=== PATIENT | female | born 1955 | race Caucasian/White ===

== ENCOUNTER → 2017-03-30 | Outpatient (CLI) | payer OTHER ==
[~2017-03-30] MED LIST: OPTIRAY 320 IV PRN; PATIENT'S ALLERGY INFO NEEDS ENTERED SCH
--- NOTE | 2017-03-30 12:49 | DIAGNOSTIC IMAGING REPORT ---
ANGIO ABD/PELVIS COMBO CLINICAL HISTORY: 61 years-old Female presenting with atherosclerosis of the [place] arteries of the bilateral legs with intermittent claudication, aortoiliac stenosis. TECHNIQUE: Multidetector CT of the abdomen and pelvis was performed before and after the administration of intravenous contrast. 3-D volumetric and/or maximum intensity projection (MIP) images were subsequently reconstructed for review. IV contrast: 93 mL of Optiray 320. A dose lowering technique was used consistent with the principles of ALARA (as low as reasonably achievable). COMPARISON: None. CT DOSE (mGy.cm): The estimated cumulative dose is 510.69 mGy.cm. FINDINGS: Hoist Mechanic topogram: Unremarkable. Vasculature: Precontrast imaging demonstrates no evidence of postsurgical material. Extensive atherosclerosis with calcified atherosclerotic plaque in the normal caliber abdominal aorta. The greatest degree of narrowing within the aortic lumen is located in the infrarenal portion. Noncalcified atherosclerotic plaque at this site results in an minimum lumen of 5.7 mm in comparison to the normal distal luminal diameter of 11.9 mm (approximately 50% stenosis). Celiac and superior mesenteric arteries patent at their origins and along their courses. Single main renal arteries with patent origins. Extensive renal vascular calcification. Inferior mesenteric artery likely stenotic at the origin though the vessel is patent. Extensive calcified and noncalcified atherosclerotic plaque diffusely narrows the bilateral common and external iliac arteries. Right common femoral artery has a minimum diameter of 2.4 mm, and the left common femoral artery has a minimum diameter of 2.8 mm. Superficial and deep femoral arteries significantly narrowed, greater on the left. Over 90% stenosis in the left superficial femoral artery. Remaining abdomen and pelvis: Lung bases: Lungs and pleural spaces clear. Normal heart size. No pericardial or pleural effusion. Liver: Macronodular contour of the liver could suggest underlying fibrosis or cirrhosis. Allowing for the arterial phase of contrast, no focal lesion. Conventional hepatic arterial anatomy. Biliary: Moderate biliary ductal prominence likely a reservoir effect in the post cholecystectomy state. Gallbladder surgically absent. Pancreas: The pancreatic tail is absent on either a surgical or congenital basis. Spleen: Normal. Adrenal glands: Mild nodular thickening of the left adrenal gland, nonspecific. Right adrenal gland normal. Kidneys and ureters: Normal. No hydronephrosis. Extensive renal vascular calcification. No nephrolithiasis. Normal ureters. Bladder: Incompletely evaluated secondary to underdistention. Pelvic organs: Uterus surgically absent. Normal ovaries. Bowel: Normal appendix. No bowel obstruction. Peritoneal cavity: No free fluid or intraperitoneal gas. Lymph nodes: No enlarged lymph nodes in the abdomen or pelvis. Abdominal wall: Normal. Musculoskeletal: Degenerative changes of the spine. Old right rib fractures noted. Anterior vertebral body height loss of L1. Mild osteopenia. IMPRESSION: 1. Extensive atherosclerotic plaque results in significant stenosis of the aortoiliac arteries and extending into the proximal lower extremities. Approximately 50% stenosis in the infrarenal abdominal aorta due to noncalcified atherosclerotic plaque. Over 90% stenosis in the left superficial femoral artery. 2. Macronodular contour of the liver could suggest underlying fibrosis or cirrhosis. 3. Anterior vertebral body height loss of L1 in setting of osteopenia. This likely represents an age-indeterminate compression deformity. Correlate clinically for point tenderness. Electronically signed by: Nas Garcia M.D. 03/30/2017 12:48 PM Dictated Date/Time: 03/30/2017 12:36 PM
== END | disposition home or self-care (01) ==
LOC: C.CTS 11:24
PROVIDERS: ATTEND Physician Assistant
DX: I70.213 Atherosclerosis of native arteries of extremities with intermittent claudication, bilateral legs (principal); R93.2 Abnormal findings on diagnostic imaging of liver and biliary tract; M85.88 Other specified disorders of bone density and structure, other site

== ENCOUNTER 2017-05-04 06:05 | Inpatient (IN) | payer OTHER ==
--- NOTE | 2017-04-12 09:09 | PAT Medication Instructions ---
Service Date Apr 12, 2017. Current Home Medication List Aspirin (Aspirin Ec), 81 MG PO QAM Isosorbide Mononitrate Ext Rel (Imdur Ext Rel), 1 TAB PO QAM Lisinopril (Zestril), 5 MG PO QAM Metoprolol Succ (Toprol Xl) (Toprol-Xl), 25 MG PO QAM Multivitamin (Multivitamin), 1 TAB PO QAM Nitroglycerin (Nitrostat), 0.4 MG UT PRN Oxycodone/Acetaminophen 7.5MG/325MG (Percocet 7.5MG/325MG), 1 TAB PO Q6H PRN for N Medication Instructions For Your Scheduled Surgery -Continue as directed: Nitroglycerin (Nitrostat), 0.4 MG UT PRN - Hold the following medications the morning of surgery: Lisinopril (Zestril), 5 MG PO QAM Multivitamin (Multivitamin), 1 TAB PO QAM - Take the following medications the morning of surgery with a sip of water: Aspirin (Aspirin Ec), 81 MG PO QAM Isosorbide Mononitrate Ext Rel (Imdur Ext Rel), 1 TAB PO QAM Metoprolol Succ (Toprol Xl) (Toprol-Xl), 25 MG PO QAM Oxycodone/Acetaminophen 7.5MG/325MG (Percocet 7.5MG/325MG), 1 TAB PO Q6H PRN ( if needed) - Take the following medications as scheduled the night before surgery: Oxycodone/Acetaminophen 7.5MG/325MG (Percocet 7.5MG/325MG), 1 TAB PO Q6H PRN ( if needed) If you have any questions please call us at [phone] or [phone] or [phone]
--- NOTE | 2017-04-12 10:32 | DIAGNOSTIC IMAGING REPORT ---
TWO VIEW CHEST CLINICAL HISTORY: Preoperative examination. FINDINGS: PA and lateral chest radiographs are obtained. No prior studies are available for comparison at the time of dictation. The cardiomediastinal silhouette is unremarkable. There is atherosclerotic calcification of the thoracic aorta. A coronary artery stent is suggested. Emphysema is identified. There is nonspecific interstitial thickening. No airspace consolidation or pleural effusion is identified. There is asymmetrical scarring at the right apex as compared to left. There is no pneumothorax. The skeletal structures are osteopenic. There are numerous healed bilateral rib fractures. Compression deformities are seen in the lower thoracic and upper lumbar spine. IMPRESSION: 1. Emphysema with no acute cardiopulmonary abnormality. 2. There is asymmetric parenchymal scarring at the right apex. Follow-up with a chest CT is recommended to exclude a right apical mass. Electronically signed by: Jose Quiroz M.D. 04/12/2017 10:30 AM Dictated Date/Time: 04/12/2017 10:29 AM
[2017-04-12 10:36] LABS: BASO % 0.3 %; BASO ABS # 0.02 K/uL (0-0.2); EOS % 1.6 %; HEMATOCRIT 39.7 % (37-47); HEMOGLOBIN 13.4 g/dL (12.0-16.0); IG# 0.03 K/uL (0.00-0.02); LYMPH % 24.4 %; LYMPH ABS # 1.54 K/uL (1.2-3.4); MEAN CORPUSCULAR HEMOGLOBIN 32.1 pg (25-34); MEAN CORPUSCULAR HGB CONC 33.8 g/dl (32-36); MEAN PLATELET VOLUME 9.8 fL (7.4-10.4); MONO % 6.8 %; MONO ABS # 0.43 K/uL (0.11-0.59); NEUT % 66.4 %; NEUT ABS # 4.19 K/uL (1.4-6.5); PLATELET COUNT 312 K/uL (130-400); RED CELL DISTRIBUTION WIDTH CV 14.5 % (11.5-14.5); RED CELL DISTRIBUTION WIDTH SD 49.5 fL (36.4-46.3); WHITE BLOOD COUNT 6.31 K/uL (4.8-10.8)
[2017-04-12 10:45] LABS: CALCIUM 9.2 mg/dl (8.5-10.1); CREATININE 0.56 mg/dl (0.60-1.20); POTASSIUM 5.1 mmol/L (3.5-5.1); PTT PATIENT 27.8 SECONDS (21.0-31.0)
[~2017-05-04] VITALS: Ht 152.4 cm; Wt 48.9 kg
[~2017-05-04 06:05] MED LIST changes: +ASPI81TA28 PO; +ISOS30TA35 PO; +LACTATED RINGER'S 1000ML 1,000 ML IV SCH; +LISI-729 PO; +METO25TA3 PO; +MULT-506 PO; +NTRGSL/4 UT; -OPTIRAY 320 IV PRN; +OXYC7.5T65 PO; -PATIENT'S ALLERGY INFO NEEDS ENTERED SCH
[2017-05-04 06:44] VITALS: BP 150/94; PULSE 104; TEMP 36.6; O2SAT 96
[2017-05-04] MEDS ORDERED: BUPIVACAINE/EPINEPHRINE 0.5% MPF 1:200,000 30 ML VIAL ONE (07:07)
[2017-05-04] MEDS ORDERED: LIDOCAINE HCL 1% 20 ML VIAL ONE (07:07)
[2017-05-04] MEDS ORDERED: IODIXANOL (VISIPAQUE) 270 MG/ML 50ML ONE (07:07)
[2017-05-04] MEDS ORDERED: GELATIN SPONGE SZ 100 ONE (07:07)
[2017-05-04] MEDS ORDERED: CEFAZOLIN SOD 1 GM VIAL ONE (07:08)
[2017-05-04] MEDS ORDERED: PAPAVERINE HCL INJ 30 MG/ML 2 ML VIAL ONE (07:08)
[2017-05-04] MEDS ORDERED: THROMBIN 5000 UNITS KIT ONE (07:08)
[2017-05-04] MEDS ORDERED: HEPARIN SOD (PORCINE) 1000 UNIT/ML 10 ML VIAL ONE ×2 (07:08→08:50)
--- NOTE | 2017-05-04 07:13 | Progress Note ---
Progress Note Date of Service May 04, 2017. Progress Note Patient for bilateral femoral artery endarterectomies and possible bilateral iliac artery stents. I have discussed the risks options and benefits of the procedure with the patient. The patient understands the risks options and benefits and agrees to the procedure. I have examined the patient, reviewed the History & Physical and in the interval since the performance of the History & Physical I have noted the following changes of clinical significance: No changes noted
[2017-05-04] MEDS ORDERED: LIDOCAINE HCL 2% 2 ML VIAL (20MG/ML) ONE (07:14)
[2017-05-04] MEDS ORDERED: MIDAZOLAM HCL 1 MG/ML 2ML VIAL ONE ×2 (07:14→10:05)
[2017-05-04] MEDS ORDERED: NEOSTIGMINE METHYLSULFATE 5 MG/5 ML SYR ONE (07:14)
[2017-05-04] MEDS ORDERED: PROPOFOL IV EMULSION 10 MG/ML 20 ML VIAL IV ONE (07:14)
[2017-05-04] MEDS ORDERED: CISATRACURIUM BESYLATE IV SOLN 2 MG/ML 10 ML VIAL ONE ×2 (07:14→11:35)
[2017-05-04] MEDS ORDERED: DEXAMETHASONE SOD INJ 4 MG/ML VIAL ONE (07:14)
[2017-05-04] MEDS ORDERED: GLYCOPYRROLATE INJ 0.2 MG/ML VIAL ONE (07:14)
[2017-05-04] MEDS ORDERED: ONDANSETRON INJ 2 MG/ML 2 ML VIAL ONE (07:14)
[2017-05-04] MEDS ORDERED: FENTANYL CITRATE INJ 50 MCG/1 ML 2 ML VIAL ONE ×3 (07:15→12:04)
[2017-05-04] MEDS ORDERED: THROMBIN FOR SOLN 20000 UNIT KIT ONE (07:19)
--- NOTE | 2017-05-04 07:32 | History and Physical ---
History & Physical Date May 04, 2017. Chief Complaint Bilateral leg claudication History of Present Illness The patient is a 61 year old female with significant claudication of both lower extremities along with an ulcer of her left foot with a necrotic eschar. This is getting worse. CTA showed bilateral iliac artery and aortic stenosis along with significant common femoral artery stenosis. Vitals Vital Signs Past 12 Hours Date Time Temp Pulse Resp B/P (MAP) Pulse Ox O2 Delivery O2 Flow Rate FiO2 05/04/17 06:44 36.6 104 20 150/94 (112) 96 Room Air Allergies Coded Allergies: Atorvastatin (Verified Adverse Reaction, Unknown, GI UPSET, STOMACH ACHES , 05/04/17) Rosuvastatin (Verified Adverse Reaction, Unknown, STOMACH ACHES GI UPSET, 05/04/17) Home Medications Scheduled Aspirin (Aspirin Ec), 81 MG PO QAM Isosorbide Mononitrate Ext Rel (Imdur Ext Rel), 1 TAB PO QAM Lisinopril (Zestril), 5 MG PO QAM Metoprolol Succ (Toprol Xl) (Toprol-Xl), 25 MG PO QAM Multivitamin (Multivitamin), 1 TAB PO QAM Nitroglycerin (Nitrostat), 0.4 MG UT PRN Scheduled PRN Oxycodone/Acetaminophen 7.5MG/325MG (Percocet 7.5MG/325MG), 1 TAB PO Q6H PRN for N Surgical / Medical History Hx Cardiac Surgery: Yes (CARDIAC CATH 2 STENT- STENT 2011) Hx Abdominal Surgery: Yes (GB SURG) Hx Cancer Surgery: Yes (HYSTERECTOMY) Hx Thoracic Surgery: No Hx Orthopedic: No Hx Urinary Tract Surgery: No HX Other Surgery: Yes (SEE TEXT) Past Medical/Surgical History: Heart Disease, Hypertension Social History Smoking Status: Current Every Day Smoker Hx Tobacco Use In Past Year?: Yes (SMOKES 1 1/2 PPD X 35 YRS) Hx Alcohol Use - Type & Amnt: Yes (6 A WEEK) Hx Substance Use -Type & Amnt: No Review of Systems Constitutional: No chills, No diaphoresis, No fever, No malaise, No weakness, No weight gain, No weight loss, No sweats, No fatigue, No problem reported Respiratory: No cough, No cyanosis, No MENDEZ, No hemoptysis, No orthopnea, No PND , No short of breath, No sputum production, No stridor, No wheezing, No dyspnea , No problem reported Cardiovascular: No chest pain, No chest tightness, No chest pressure, No palpitations, No syncope, No diaphoresis, No edema, No intermittent claudication , No orthopnea, No cyanosis, No mumur, No lightheadedness, No paroxysmal nocturnal dyspnea, No problem reported Gastrointestinal: No abdominal pain, No constipation, No diarrhea, No nausea, No vomiting, No anorexia, No appetite changes, No belching, No flatulence, No food intolerance, No hematemesis, No hemorrhoids, No hematochezia, No stool changes, No heartburn, No indigestion, No dysphagia, No rectal bleeding, No problem reported Musculoskeletal: No back pain, No gout, No joint pain, No joint swelling, No muscle pain, No muscle stiffness, No muscle weakness, No neck pain, No problem reported Neurologic: No dizziness, No weakness, No headache, No lethargy, No numbness, No paresthesia, No pre-existing deficit, No seizures, No tics, No tingling, No tremors, No vertigo, No memory loss, No LOC, No problem reported Psychiatric: No anxiety, No alcohol abuse, No auditory hallucinations, No depression, No drug abuse, No homicidal ideation, No mood changes, No suicidal ideation, No visual hallucinations, No problem reported Physical Exam Constitutional: General Apperance: heathly-appearing, well-nourished, well-developed Level of Distress: NAD Ambulation: ambulating normally Psychiatric: Mental Status: active & alert, normal mood, normal affect Orientation: oriented except where noted, to time, to place, to person Memory: recent memory normal, remote memory normal Neck: supple Lungs: Auscultation: breath sounds normal Cardiovascular: Heart Auscultation: RRR Peripheral Pulses: Radial Pulse: normal on the left, normal on the right Posterior Tibialis Pulse: absent on the left, absent on the right Dorsalis Pedis Pulse: decreased on the right, absent on the left Abdomen: Inspection & Palpation: soft Musculoskeletal: normal Extremities: Upper Right: no cyanosis, no edema, no varicosities, no palpable cord, no clubbing, no ulcers, no mottling Upper Left: no cyanosis, no edema, no varicosities, no palpable cord, no clubbing, no ulcers, no mottling Lower Right: no cyanosis, no edema, no varicosities, no palpable cord, no clubbing, no ulcers, no mottling Lower Left: no edema, ulcers Neurologic: Cranial Nerves: grossly intact Sensation: grossly intact Assessment and Plan Imp: Bilateral iliac and aortic stenosis Bilateral femoral artery stenosis Plan: Patient for arteriography with possible intervention and bilateral common femoral artery endarterectomies. I have discussed the risks options and benefits of the procedure with the patient. The patient understands the risks options and benefits and agrees to the procedure.
[2017-05-04] MEDS: CEFAZOLIN 1000MG IV PUSH 7.5 ML IV SCH ×2 (08:01→08:10)
[2017-05-04] MEDS ORDERED: ESMOLOL HCL 10 MG/ML 10 ML VIAL ONE (08:50)
[2017-05-04] MEDS ORDERED: METOPROLOL TARTRATE 1 MG/ML VIAL ONE (12:05)
[2017-05-04] MEDS ORDERED: IODIXANOL (VISIPAQUE) 270 MG/ML 150ML XX ONE (12:06)
--- NOTE | 2017-05-04 12:19 | [facility] Post Operative Brief Note ---
Immediate Operative Summary Operative Date May 04, 2017. Pre-Operative Diagnosis Bilateral iliac and aortic stenosis Bilateral femoral artery stenosis Post-Operative Diagnosis Bilateral iliac and aortic stenosis Bilateral femoral artery stenosis Bilateral profunda femoral artery stenosis Procedure(s) Performed Bilateral Common Femoral Artery Endarterectomy with Patch Bilateral Common Iliac Artery Stents Bilateral Profunda Artery Endartetectomy with Patch Surgeon Dr. Angel Mejia [employer] Lead Surgeon(s) Marlene Goodman PA-c and Dr. Precious Melchor(Fellow) Estimated Blood Loss 250 ml Findings Consistent with Post-Op Diagnosis Specimens None Per Surgeon Drains None Anesthesia Type General Complication(s) none Disposition Accompanied Pt To Recover: no Disposition: Recovery Room / PACU
[2017-05-04] MEDS ORDERED: CEFAZOLIN IV 1,000 MG in DEXTROSE 5% 50ML 50 ML IV SCH (12:30)
[2017-05-04] MEDS ORDERED: NITROGLYCERIN 0.4 MG SL PER TAB CHARGE UT PRN (12:30)
[2017-05-04] MEDS ORDERED: ONDANSETRON INJ 2 MG/ML 2 ML VIAL IV PRN ×2 (12:30→13:00)
[2017-05-04] MEDS ORDERED: NITROGLYCERIN 5 MG/ML 10 ML VIAL ONE (12:59)
[2017-05-04] MEDS ORDERED: NALOXONE HCL 0.4 MG/1 ML VIAL/CARP IV PRN (13:00)
[2017-05-04] MEDS ORDERED: PROMETHAZINE HCL INJ 12.5 MG in SODIUM CHLORIDE 0.9% 50ML 50 ML IV PRN (13:00)
[2017-05-04] MEDS ORDERED: LABETALOL HCL IV 5 MG/ML 20ML IV PRN (13:00)
[2017-05-04] MEDS ORDERED: EpHEDrine SULFATE INJ 50 MG/ML AMP IV PRN (13:00)
[2017-05-04] MEDS ORDERED: FLUMAZENIL 0.1 MG/1 ML 10 ML VIAL IV PRN (13:00)
[2017-05-04] MEDS ORDERED: ATROPINE SULFATE 0.1 MG/ML 5ML SYR IV PRN (13:00)
[2017-05-04 13:13] LABS: BASO % 0.1 %; BASO ABS # 0.01 K/uL (0-0.2); EOS % 0.4 %; EOS ABS # 0.03 K/uL (0-0.5); HEMATOCRIT 31.2 % (37-47); HEMOGLOBIN 9.9 g/dL (12.0-16.0); IG# 0.07 K/uL (0.00-0.02); LYMPH % 10.9 %; LYMPH ABS # 0.87 K/uL (1.2-3.4); MEAN CELL VOLUME 95.4 fL (80-100); MEAN CORPUSCULAR HEMOGLOBIN 30.3 pg (25-34); MEAN CORPUSCULAR HGB CONC 31.7 g/dl (32-36); MEAN PLATELET VOLUME 8.6 fL (7.4-10.4); MONO % 1.4 %; MONO ABS # 0.11 K/uL (0.11-0.59); NEUT % 86.3 %; NEUT ABS # 6.87 K/uL (1.4-6.5); PLATELET COUNT 280 K/uL (130-400); RED CELL DISTRIBUTION WIDTH SD 51.8 fL (36.4-46.3); WHITE BLOOD COUNT 7.96 K/uL (4.8-10.8)
--- NOTE | 2017-05-04 13:41 | Anesthesiology Progress Note ---
Anesthesia Post Op Note Date & Time May 04, 2017 at 13:41 Vital Signs Pain Intensity: 0 Vital Signs Past 12 Hours Date Time Temp Pulse Resp B/P (MAP) Pulse Ox O2 Delivery O2 Flow Rate FiO2 05/04/17 13:25 36.6 93 18 100/67 99 Nasal Cannula 2 05/04/17 13:15 89 18 100/63 96 Nasal Cannula 2 05/04/17 13:05 86 18 99/66 100 Oxymask 10 05/04/17 12:55 85 20 98/68 100 Oxymask 10 05/04/17 12:46 36.7 82 20 98/62 100 Oxymask 10 05/04/17 06:44 36.6 104 20 150/94 (112) 96 Room Air Notes Mental Status: alert / awake / arousable, participated in evaluation Pt Amnestic to Procedure: Yes Nausea / Vomiting: adequately controlled Pain: adequately controlled Airway Patency, RR, SpO2: stable & adequate BP & HR: stable & adequate Hydration State: stable & adequate Anesthetic Complications: no major complications apparent
[2017-05-04] MEDS ORDERED: MoRPHine SULFATE 2 MG/ML CARP IV PRN (14:00)
[2017-05-04] MEDS: HYDROmorphone INJ 1 MG/ML SYR IV PRN ×2 (14:00→14:05)
[2017-05-04 14:45] VITALS: BP 99/64; PULSE 97; TEMP 37; O2SAT 95; Ht 152.4 cm; Wt 48.9 kg
[2017-05-04 15:38] VITALS: BP 104/67; PULSE 96; TEMP 37.1; O2SAT 94
[2017-05-04] MEDS: CEFAZOLIN IV 1,000 MG in SYRINGE 0 ML IV SCH (15:38)
[2017-05-04] MEDS ORDERED: D5W AND 1/2NSS 1,000 ML IV SCH (16:00)
[2017-05-04 16:11] VITALS: BP 128/79; PULSE 86; TEMP 36.6; O2SAT 98
[2017-05-04 19:55] VITALS: BP 124/76; PULSE 94; TEMP 37.8; O2SAT 98
[2017-05-05] VITALS (11 sets, daily range): BP systolic 92–135; BP diastolic 58–76; PULSE 91–118; TEMP 36.6–37.5; O2SAT 90–98
[2017-05-05] MEDS: CEFAZOLIN IV 1,000 MG in SYRINGE 0 ML IV SCH (00:10)
[2017-05-05] MEDS: OXYCODONE/ACETAMINOPHEN 5-325 TAB PO PRN ×4 (00:13→23:44)
[2017-05-05] MEDS: MoRPHine SULFATE 4 MG/ML 1 ML CARP\\VIAL IV PRN ×2 (02:16→21:16)
[2017-05-05] MEDS: ISOSORBIDE MONONITRATE 30 MG TABCR PO SCH (07:26)
[2017-05-05] MEDS: PANTOprazole SOD 40 MG TAB PO SCH (07:26)
[2017-05-05] MEDS: MULTIVITAMIN TAB PO SCH (07:27)
[2017-05-05] MEDS: METOPROLOL SUCC 25MG EXT REL TAB PO SCH (07:27)
[2017-05-05] MEDS: ASPIRIN 81 MG ECTAB PO SCH (07:27)
[2017-05-05] MEDS: LISINOPRIL 5 MG TAB PO SCH (07:27)
[2017-05-05] MEDS: ENOXAPARIN 30 MG/0.3 ML SYR SQ SCH (07:28)
[2017-05-05 07:52] LABS: BASO % 0.1 %; BASO ABS # 0.01 K/uL (0-0.2); EOS % 0.8 %; EOS ABS # 0.07 K/uL (0-0.5); HEMATOCRIT 29.6 % (37-47); HEMOGLOBIN 9.7 g/dL (12.0-16.0); IG# 0.05 K/uL (0.00-0.02); LYMPH % 20.7 %; LYMPH ABS # 1.92 K/uL (1.2-3.4); MEAN CELL VOLUME 96.1 fL (80-100); MEAN CORPUSCULAR HEMOGLOBIN 31.5 pg (25-34); MEAN CORPUSCULAR HGB CONC 32.8 g/dl (32-36); MONO ABS # 1.11 K/uL (0.11-0.59); NEUT % 65.9 %; NEUT ABS # 6.11 K/uL (1.4-6.5); PLATELET COUNT 281 K/uL (130-400); RED CELL DISTRIBUTION WIDTH CV 15.4 % (11.5-14.5); RED CELL DISTRIBUTION WIDTH SD 53.6 fL (36.4-46.3); WHITE BLOOD COUNT 9.27 K/uL (4.8-10.8)
[2017-05-05 08:19] LABS: CALCIUM 8.3 mg/dl (8.5-10.1); CREATININE 0.52 mg/dl (0.60-1.20)
[2017-05-05] MEDS ORDERED: PANTOprazole INJ 40 MG in SYRINGE 0 ML IV SCH (11:00)
--- NOTE | 2017-05-05 13:09 | Progress Note ---
Progress Note Date of Service: May 05, 2017. Subjective 61 yo f with multiple medical problems, POD #1 after BL comm iliac art stenting , BL comm fem endarterectomies, BL profunda art endarterectomies, seen in f/u today. Pt admits pain in L foot at wounds only. Admits pain in BL groin incisions, worse with movement. Denies any other complaints. Objective Vital Signs Vital Signs Past 12 Hours Date Time Temp Pulse Resp B/P (MAP) Pulse Ox O2 Delivery O2 Flow Rate FiO2 05/05/17 11:45 36.6 101 18 92/63 (73) 95 Room Air 05/05/17 08:00 90 Room Air 05/05/17 07:36 36.7 109 18 119/70 (86) 90 Room Air 05/05/17 04:02 Room Air 05/05/17 03:33 37.1 118 18 122/76 (91) 91 Exam CONST: A&O x3, NAD, chronically ill appearing female CHEST: RRR lungs decreased, with scattered wheezes and coarse sounds ABD: soft nontnder, + bs x 4 quad EXT: BL groin incisions intact with machelle, + tender, mild edema. No shadowing on dressings. BL feet warm and pink. L lateral foot with eschar noted, unchanged. All toes with brisk cap refill, few old punctate lesions L 3, 4,5 toes. + DP, PT, and peroneal signals with doppler. Laboratory and Microbiology Results Past 24 Hours Test 05/04/17 13:04 05/05/17 07:25 Range/Units White Blood Count 7.96 9.27 4.8-10.8 K/uL Red Blood Count 3.27 3.08 4.2-5.4 M/uL Hemoglobin 9.9 9.7 12.0-16.0 g/dL Hematocrit 31.2 29.6 37-47 % Mean Corpuscular Volume 95.4 96.1 80-100 fL Mean Corpuscular Hemoglobin 30.3 31.5 25-34 pg Mean Corpuscular Hemoglobin Concent 31.7 32.8 32-36 g/dl Platelet Count 280 281 130-400 K/uL Mean Platelet Volume 8.6 9.0 7.4-10.4 fL Neutrophils (%) (Auto) 86.3 65.9 % Lymphocytes (%) (Auto) 10.9 20.7 % Monocytes (%) (Auto) 1.4 12.0 % Eosinophils (%) (Auto) 0.4 0.8 % Basophils (%) (Auto) 0.1 0.1 % Neutrophils # (Auto) 6.87 6.11 1.4-6.5 K/uL Lymphocytes # (Auto) 0.87 1.92 1.2-3.4 K/uL Monocytes # (Auto) 0.11 1.11 0.11-0.59 K/uL Eosinophils # (Auto) 0.03 0.07 0-0.5 K/uL Basophils # (Auto) 0.01 0.01 0-0.2 K/uL RDW Standard Deviation 51.8 53.6 36.4-46.3 fL RDW Coefficient of Variation 15.0 15.4 11.5-14.5 % Immature Granulocyte % (Auto) 0.9 0.5 % Immature Granulocyte # (Auto) 0.07 0.05 0.00-0.02 K/uL Sodium Level 136 136-145 mmol/L Potassium Level 4.0 3.5-5.1 mmol/L Chloride Level 103 98-107 mmol/L Carbon Dioxide Level 30 21-32 mmol/L Anion Gap 3.0 3-11 mmol/L Blood Urea Nitrogen 5 7-18 mg/dl Creatinine 0.52 0.60-1.20 mg/dl Est Creatinine Clear Calc Drug Dose 81.6 ml/min Estimated GFR () 119.5 Estimated GFR (Non- 103.1 BUN/Creatinine Ratio 9.6 10-20 Random Glucose 85 70-99 mg/dl Calcium Level 8.3 8.5-10.1 mg/dl ASSESSMENT and PLAN: s/p BL comm iliac art stenting, BL comm fem art endarterectomies, BL profunda femoral art endarterectomies Severe PAD with rest pain and LLE ischemia Pt doing well post op. Dopplered pulses excellent. Continue to monitor for pain control. Possible discharge tomorrow.
[2017-05-06] VITALS (14 sets, daily range): BP systolic 94–149; BP diastolic 57–87; PULSE 82–129; TEMP 36.8–37.5; O2SAT 91–99
[2017-05-06 07:49] LABS: HEMATOCRIT 30.3 % (37-47); HEMOGLOBIN 9.8 g/dL (12.0-16.0)
[2017-05-06] MEDS: OXYCODONE/ACETAMINOPHEN 5-325 TAB PO PRN ×3 (07:59→20:10)
[2017-05-06] MEDS: LISINOPRIL 5 MG TAB PO SCH (08:00)
[2017-05-06] MEDS: ENOXAPARIN 30 MG/0.3 ML SYR SQ SCH (08:00)
[2017-05-06] MEDS: ASPIRIN 81 MG ECTAB PO SCH (08:00)
[2017-05-06] MEDS: METOPROLOL SUCC 25MG EXT REL TAB PO SCH (08:00)
[2017-05-06] MEDS: MULTIVITAMIN TAB PO SCH (08:00)
[2017-05-06] MEDS: ISOSORBIDE MONONITRATE 30 MG TABCR PO SCH (08:00)
[2017-05-06] MEDS: PANTOprazole SOD 40 MG TAB PO SCH (08:01)
[2017-05-06 08:29] LABS: CALCIUM 8.6 mg/dl (8.5-10.1); CREATININE 0.43 mg/dl (0.60-1.20); POTASSIUM 3.4 mmol/L (3.5-5.1)
--- NOTE | 2017-05-06 14:22 | Progress Note ---
Progress Note Date of Service: May 06, 2017. Subjective 61 yo f with multiple medical problems, POD #2 after BL femoral endarterectomies , Bl iliac stents, seen in f/u today. Pt admits burning pain in L toes and over open area, and in L thigh. Controlled with medications. Admits pain with ambulation in incisions, but no calf pain with ambulation. Denies any new complaints, is anxious for discharge. Per staff, pt was tachycardic overnight at 170 and had appearance of SVT on monitor, but pt was asymptomatic. HR has been 120-130 all day since then. Pt denies any sx. Did have 1 liter of NSS overnight d/t low urine output and concern for mild dehydration. Pt states she has had increased HR before with activity. Does not have a general farmer at present. Objective Vital Signs Vital Signs Past 12 Hours Date Time Temp Pulse Resp B/P (MAP) Pulse Ox O2 Delivery O2 Flow Rate FiO2 05/06/17 12:00 Room Air 05/06/17 11:29 37.0 96 20 94/57 (69) 93 Room Air 05/06/17 08:00 Room Air 05/06/17 07:11 37.0 122 20 133/82 (99) 94 Room Air 05/06/17 04:52 37.2 116 18 130/87 (101) 91 Room Air 05/06/17 04:00 96 Room Air Exam CONST: A&O x3, NAD, chronically ill appearing female CHEST: regular, mildly tachycardic, lungs decreased, with sparse wheezing ABD: soft, nontender, + bs x 4 quad EXT: BL incisions C/D/I with machelle. Feet warm and pink, brisk cap refill. Excellent dopplerable distal pulses. L lateral foot with black eschar unchanged and punctate lesions to 3,4,5 toes. Laboratory and Microbiology Results Past 24 Hours Test 05/06/17 07:38 Range/Units Hemoglobin 9.8 12.0-16.0 g/dL Hematocrit 30.3 37-47 % Sodium Level 136 136-145 mmol/L Potassium Level 3.4 3.5-5.1 mmol/L Chloride Level 102 98-107 mmol/L Carbon Dioxide Level 28 21-32 mmol/L Anion Gap 6.0 3-11 mmol/L Blood Urea Nitrogen 6 7-18 mg/dl Creatinine 0.43 0.60-1.20 mg/dl Est Creatinine Clear Calc Drug Dose 98.7 ml/min Estimated GFR () 127.2 Estimated GFR (Non- 109.8 BUN/Creatinine Ratio 14.4 10-20 Random Glucose 99 70-99 mg/dl Calcium Level 8.6 8.5-10.1 mg/dl ASSESSMENT and PLAN: s/p BL comm fem endarterectomies, BL profunda femoral art endarterectomies, Bl comm iliac stents Severe PAD with ischemia and rest pain Post op tachycardia Pt discussed with Dr Mejia, recommends pt be eval by cardiology before considering discharge. Continue monitoring. Possible d/t home tomorrow if ok with cards. Recommend home nursing to change dressings to L foot.
--- NOTE | 2017-05-06 17:17 | Cardiology Consultation ---
Cardiology Consultation Date of Consultation: May 06, 2017. Requesting Physician: Jackie Reason for Consultation: TAchycardia Pt evaluation today including: conversation w/ patient, physical exam, chart review, lab review, review of studies, review of inpatient medication list History of Present Illness The patient is a 61-year-old woman without a known history of cardiac disease who underwent bilateral iliac endarterectomy since stent in. In the postoperative period she was noted on telemetry to have periods of sinus tachycardia. The episodes themselves appear to be fairly random in nature and can occur at nighttime while patient reportedly was sleeping. Patient herself is unaware of any racing heartbeats. She states that on occasion with activity she will notice some high heart rates. If she rushes she will have some mild dyspnea and high heart rates. She otherwise is not aware of palpitations or racing heartbeats. She denies significant dizziness or lightheadedness. She has not had exertional chest pains or chest pains at rest. Ambulation recently has been more limited by her foot discomfort and her claudication. She has had 2 syncopal episodes several years apart. These happen quite remotely. They appear to to have been situational in nature. Currently she is feeling fairly well. She continues to have some mild discomfort in her foot which is improved. She has been ambulatory to the bathroom and back with out significant symptoms. Past Medical/Surgical History Peripheral vascular disease Hypertension Hyperlipidemia Past surgical history Peripheral vascular surgery Cholecystectomy Social History Smoking Status: Current Every Day Smoker History of Alcohol Use: Yes (4 beers a night) Currently lives with her . She denies significant alcohol use Review of Systems Per HPI All Other Systems: Reviewed and Negative Allergies Coded Allergies: Atorvastatin (Verified Adverse Reaction, Unknown, GI UPSET, STOMACH ACHES , 05/04/17) Rosuvastatin (Verified Adverse Reaction, Unknown, STOMACH ACHES GI UPSET, 05/04/17) Medications Current Inpatient Medications Medications (Trade) Dose Ordered Sig/Jairon Route Start Time Stop Time Status Last Admin Dose Admin Oxycodone/ Acetaminophen (Percocet 5-325mg Tab) `1-2 TABS FOR MODER... Q4H PRN PO 05/04/17 12:30 05/18/17 12:29 05/06/17 12:33 2 TAB Morphine Sulfate (MoRPHine SULFATE INJ) 4 mg Q2H PRN IV 05/04/17 12:30 05/18/17 12:29 05/05/17 21:16 4 MG Ondansetron HCl (Zofran Inj) 4 mg Q6H PRN IV 05/04/17 12:30 06/03/17 12:29 Enoxaparin Sodium (Lovenox Inj) 30 mg Q24H SQ 05/05/17 08:00 06/04/17 07:59 05/05/17 07:28 30 MG Aspirin (Ecotrin Tab) 81 mg QAM PO 05/05/17 09:00 06/04/17 08:59 05/06/17 08:00 81 MG Isosorbide Mononitrate (Imdur Ext Rel Tab) 30 mg QAM PO 05/05/17 09:00 06/04/17 08:59 05/06/17 08:00 30 MG Lisinopril (Zestril Tab) 5 mg QAM PO 05/05/17 09:00 06/04/17 08:59 05/06/17 08:00 5 MG Metoprolol Succinate (Toprol Xl Tab) 25 mg QAM PO 05/05/17 09:00 06/04/17 08:59 05/06/17 08:00 25 MG Multivitamins (Multivitamin Tab) 1 tab QAM PO 05/05/17 09:00 06/04/17 08:59 05/06/17 08:00 1 TAB Nitroglycerin (Nitrostat Tab) 0.4 mg UD PRN UT 05/04/17 12:30 06/03/17 12:29 Morphine Sulfate (MoRPHine SULFATE INJ) 2 mg Q2H PRN IV 05/04/17 14:00 05/18/17 13:59 Pantoprazole Sodium (Protonix Tab) 40 mg QAM PO 05/05/17 09:00 05/09/17 08:59 05/06/17 08:01 40 MG Physical Exam Vital Signs Past 12 Hours Date Time Temp Pulse Resp B/P (MAP) Pulse Ox O2 Delivery O2 Flow Rate FiO2 05/06/17 15:44 37.1 82 20 97/63 (74) 92 Room Air 05/06/17 12:00 Room Air 05/06/17 11:29 37.0 96 20 94/57 (69) 93 Room Air 05/06/17 08:00 Room Air 05/06/17 07:11 37.0 122 20 133/82 (99) 94 Room Air 05/06/17 04:52 37.2 116 18 130/87 (101) 91 Room Air Constitutional: General Apperance: heathly-appearing, well-nourished, well-developed Level of Distress: NAD Ambulation: ambulating normally Psychiatric: Orientation: oriented except where noted, to time, to place, to person Memory: recent memory normal, remote memory normal Lungs: Auscultation: breath sounds normal Peripheral Pulses: Radial Pulse: normal on the left, normal on the right Dorsalis Pedis Pulse: decreased on the right, absent on the left Abdomen: Inspection & Palpation: soft Neurologic: Cranial Nerves: grossly intact Sensation: grossly intact She is alert and oriented x3. Mood affect appear normal. She answered all questions appropriately. HEENT: Sclerae are anicteric. Pupils are equal and reactive to light and accommodation. Extraocular movements were intact. Neuro: Cranial nerves intact Neck: Examination of the submandibular region did not reveal any significant lymphadenopathy. Carotids are palpable bilaterally and free of bruits on auscultation. There was no evidence of jugular venous distention. The thyroid was not enlarged. Lungs: Lungs are clear to auscultation bilaterally. There are no rales wheezes or rhonchi. She has normal respiratory effort without use of accessory muscles. There is normal pulmonary excursion. Cardiac: The rhythm was regular. S1 and S2 were normal. There are no murmurs on examination. The PMI was not markedly displaced on palpation. Abdomen: The abdomen was soft and nontender. Extremities: Patient has bilateral radial pulses that are equal in intensity but faint. There is no evidence cyanosis or clubbing. There was no evidence of significant peripheral edema bilaterally. There were some trophic changes in legs bilaterally. Pulses were faint. Skin: There are no rashes noted on examination today. Data Laboratory Results: Last 24 Hours Test 05/06/17 07:38 Hemoglobin 9.8 g/dL Hematocrit 30.3 % Sodium Level 136 mmol/L Potassium Level 3.4 mmol/L Chloride Level 102 mmol/L Carbon Dioxide Level 28 mmol/L Anion Gap 6.0 mmol/L Blood Urea Nitrogen 6 mg/dl Creatinine 0.43 mg/dl Est Creatinine Clear Calc Drug Dose 98.7 ml/min Estimated GFR () 127.2 Estimated GFR (Non- 109.8 BUN/Creatinine Ratio 14.4 Random Glucose 99 mg/dl Calcium Level 8.6 mg/dl Imaging: Preoperative chest x-ray suggested emphysema EKG: Normal sinus rhythm Telemetry reviewed: Sinus rhythm with periods of sinus tachycardia Assessment & Plan 1. Sinus tachycardia: Generally speaking sinus tachycardia is reactive in some fashion. Common etiologies would include hypovolemia, anemia, pain, agitation or fever. Orthostatic blood pressures are currently being obtained and this would be a good screening for hypovolemia. She has been administered some IV fluid since admission. Her hemoglobin has dropped significantly but may not be playing a role in her current heart rate elevations that she is not appear to be significantly symptomatic otherwise. Her hospital records suggest she has gone through some periods of agitation and significant pain. Unclear whether her episodes of tachycardia correlate well with these events. I reviewed her telemetry does not reveal any alteration in her P-wave morphology or suggest a more sinister arrhythmia. While she likely has an element of coronary disease given her significant peripheral vascular disease, she does not have significant symptoms of angina and has not manifest symptoms of congestive heart failure. She does not have a resting tachycardia. I think an echocardiogram would be reasonable in order to exclude some form of cardiomyopathy and decompensated heart failure, but the patient is ambulatory without symptoms this should not delay her discharge. In the absence of symptoms or structural heart disease noted on echocardiography I do not believe any additional therapy is warranted.
[2017-05-07] MEDS: OXYCODONE/ACETAMINOPHEN 5-325 TAB PO PRN ×2 (02:10→07:48)
[2017-05-07 04:00] VITALS: O2SAT 98
[2017-05-07 04:12] VITALS: BP 96/64; PULSE 85; TEMP 36.8; O2SAT 98
[2017-05-07] MEDS: ENOXAPARIN 30 MG/0.3 ML SYR SQ SCH ×2 (08:00→08:54)
--- NOTE | 2017-05-07 08:21 | ECHOCARDIOGRAM REPORT ---
*NOTICE TO RECEIVING REPUBLICAN AGENCY This information is strictly Confidential and protected under [place] law. [place] law prohibits you from making any further disclosure of this information unless further disclosure is expressly permitted by the written consent of the person to whom it pertains or is authorized by law. A general authorization for the release of medical or other information is not sufficient for this purpose. Hospital accepts no responsibility if the information is made available to any other person, INCLUDING THE PATIENT. Interpretation Summary * Name: NOHEMI PACE Study Date: 05/07/2017 06:56 AM BP: 96/64 mmHg * Patient Location: C.2T\S\S243\S\1 HR: 85 * : 1955 (M/d/yyyy) Gender: Female Height: 60 in * Age: 61 yrs Ethnicity: CA Weight: 106 lb * Ordering Physician: Tigre Wallis * Referring Physician: Angel Mejia. * Performed By: Ada Rogel RDCS * * Reason For Study: Palpitations * BSA: 1.4 m2 * -- Conclusions -- * 1. Normal LV size and wall thickness. * 2. Normal LV systolic function. LVEF 60-65%. No regional wall motion abnormalities. * 3. Normal RV size and function. * 4. Trace MR. Trace TR. * 5. Normal est. PA and RA pressures. * 6. No prior studies for comparison. Procedure Details * A complete two-dimensional transthoracic echocardiogram was performed (2D, M-mode, Doppler and color flow Doppler). Left Ventricle * The left ventricle is normal in size. * There is normal left ventricular wall thickness. * Ejection Fraction = 60-65%. * No regional wall motion abnormalities noted. Right Ventricle * The right ventricle is grossly normal size. * The right ventricular systolic function is normal as assessed by tricuspid annular plane systolic excursion (TAPSE) (normal >1.5 cm). Atria * The left atrial size is normal. * Right atrial size is normal. * No ASD detected; PFO is not assessed. Mitral Valve * The mitral valve anatomy is normal. * There is no mitral valve stenosis. * There is trace mitral regurgitation. Tricuspid Valve * There is trace tricuspid regurgitation. Aortic Valve * The aortic valve opens well. * No hemodynamically significant valvular aortic stenosis. * There is no significant aortic regurgitation. Pulmonic Valve * The pulmonary valve is inadequately visualized, but the Doppler data is adequate for interpretation. * There is no significant pulmonary regurgitation. Great Vessels * The aortic root and proximal ascending aorta are normal sized. Pericardium/Pleural * There is no pericardial effusion. Great Vessels * Normal inferior vena cava size and collapsability with sniff indicates a normal right atrial pressure of 3 mmHg * There is no evidence of pulmonary hypertension. The PA systolic pressure is less than 36 mmHg. MMode 2D Measurements and Calculations IVSd 0.93 cm IVSs 1.1 cm LVIDd 3.9 cm LVIDs 2.4 cm LVPWd 0.88 cm LVPWs 1.3 cm IVS/LVPW 1.1 FS 39.4 % EDV(Teich) 66.8 ml ESV(Teich) 19.7 ml EF(Teich) 70.5 % EDV(cubed) 60.3 ml ESV(cubed) 13.4 ml EF(cubed) 77.7 % % IVS thick 17.9 % % LVPW thick 50.6 % LV mass(C)d 107.4 grams LV mass(C)dI 75.3 grams/m\S\2 LV mass(C)s 81.6 grams LV mass(C)sI 57.3 grams/m\S\2 SV(Teich) 47.1 ml SI(Teich) 33.0 ml/m\S\2 SV(cubed) 46.9 ml SI(cubed) 32.9 ml/m\S\2 Ao root diam 2.3 cm Ao root area 4.2 cm\S\2 ACS 1.5 cm LA dimension 2.6 cm LA/Ao 1.1 LVAd ap4 21.3 cm\S\2 LVLd ap4 7.0 cm EDV(MOD-sp4) 55.1 ml EDV(sp4-el) 55.1 ml LVAs ap4 12.6 cm\S\2 LVLs ap4 6.0 cm ESV(MOD-sp4) 23.5 ml ESV(sp4-el) 22.6 ml EF(MOD-sp4) 57.3 % EF(sp4-el) 59.0 % LVAd ap2 21.2 cm\S\2 LVLd ap2 7.1 cm EDV(MOD-sp2) 54.2 ml EDV(sp2-el) 53.7 ml LVAs ap2 12.3 cm\S\2 LVLs ap2 6.7 cm ESV(MOD-sp2) 20.0 ml ESV(sp2-el) 19.1 ml EF(MOD-sp2) 63.0 % EF(sp2-el) 64.5 % LVLd %diff 1.3 % EDV(MOD-bp) 55.2 ml LVLs %diff 11.8 % ESV(MOD-bp) 22.8 ml EF(MOD-bp) 58.7 % SV(MOD-sp4) 31.6 ml SI(MOD-sp4) 22.2 ml/m\S\2 SV(MOD-sp2) 34.2 ml SI(MOD-sp2) 24.0 ml/m\S\2 SV(MOD-bp) 32.4 ml SI(MOD-bp) 22.7 ml/m\S\2 SV(sp4-el) 32.5 ml SI(sp4-el) 22.8 ml/m\S\2 SV(sp2-el) 34.6 ml SI(sp2-el) 24.3 ml/m\S\2 Doppler Measurements and Calculations MV E max aly 118.1 cm/sec MV A max aly 105.7 cm/sec MV E/A 1.1 MV dec time 0.22 sec Ao V2 max 145.7 cm/sec Ao max PG 8.5 mmHg Ao max PG (full) 4.0 mmHg LV V1 max PG 4.5 mmHg LV V1 max 105.7 cm/sec PA V2 max 91.2 cm/sec PA max PG 3.3 mmHg TR max aly 224.8 cm/sec
[2017-05-07 08:24] VITALS: BP 103/58; PULSE 96; TEMP 37; O2SAT 96
[2017-05-07] MEDS ORDERED: CLOP1TAB5 PO (08:50)
[2017-05-07] MEDS ORDERED: OXYC-57 PO (08:50)
[2017-05-07] MEDS ORDERED: NICO21DI35 TD (08:50)
[2017-05-07] MEDS: MULTIVITAMIN TAB PO SCH (08:54)
[2017-05-07] MEDS: PANTOprazole SOD 40 MG TAB PO SCH (08:54)
[2017-05-07] MEDS: LISINOPRIL 5 MG TAB PO SCH (08:54)
[2017-05-07] MEDS: ASPIRIN 81 MG ECTAB PO SCH (08:54)
[2017-05-07] MEDS: ISOSORBIDE MONONITRATE 30 MG TABCR PO SCH (08:55)
[2017-05-07] MEDS ORDERED: CLOPIDOGREL BISULFATE 75 MG TAB PO ONE (09:00)
--- NOTE | 2017-05-07 09:02 | Discharge Instructions ---
Discharge Instructions Date of Service May 07, 2017. Admission Reason for Admission: Bilateral Common Iliac & Femoral Artery Stenosis with rest pain Discharge Discharge Diagnosis / Problem: post Bilateral femoral artery endarterectomies, bilateral iliac artery stent Discharge Goals Goal(s): Decrease discomfort, Therapeutic intervention, Prevent Disease Progression Activity Recommendations Activity Limitations: per Instructions/Follow-up section . Instructions / Follow-Up Instructions / Follow-Up Pt may shower and dry incisions thoroughly, NO TUB BATHING/SOAKING. No dressings needed to groin incisions. L foot dressing needs changed daily: swab with betadine(iodine), then cover with 4x4 gauze. Ambulation and weight bearing as tolerated. No driving x [address] week[address] Follow up with Dr Mejia or Marlene Goodman PA-C, in 2 weeks for staple removal. Current Hospital Diet Patient's current hospital diet: AHA Diet (Heart Healthy) Discharge Diet Recommended Diet: AHA Diet (Heart Healthy) Procedures Procedures Performed: Bilateral Common Femoral Artery Endarterectomy with Patch Bilateral Common Iliac Artery Stents Bilateral Profunda Artery Endartetectomy with Patch Pending Studies Studies pending at discharge: no Medical Emergencies . Who to Call and When: Medical Emergencies: If at any time you feel your situation is an emergency, please call 911 immediately. . Non-Emergent Contact Non-Emergency issues call your: Surgeon . "Provider Documentation" section prepared by Marlene Goodman. . [place] Drug Monitoring Program Search Results: no issues identified
--- NOTE | 2017-05-07 09:05 | Progress Note ---
Progress Note Date of Service: May 07, 2017. Subjective 61 yo f with multiple medical problems, s/p BL comm fem art endarterectomies, BL comm iliac stenting, and BL profunda femoral art endarterectomies, seen in f/ u today. Pt states feeling generally well. Admits pain in Bl groins with movement and burning sensation to L foot/toes. Denies any other new complaints. Objective Vital Signs Vital Signs Past 12 Hours Date Time Temp Pulse Resp B/P (MAP) Pulse Ox O2 Delivery O2 Flow Rate FiO2 05/07/17 08:24 37.0 96 18 103/58 (73) 96 Room Air 05/07/17 08:00 Room Air 05/07/17 04:12 36.8 85 16 96/64 (75) 98 Room Air 05/07/17 04:00 98 Room Air 05/06/17 23:59 99 Room Air 05/06/17 23:41 37.4 94 16 106/71 (83) 99 Room Air Exam CONST: A&O x3, NAD, chronically ill appearing female CHEST: regular, mildly tachycardic, lungs decreased, with sparse wheezing ABD: soft, nontender, + bs x 4 quad EXT: BL incisions C/D/I with machelle. Feet warm and pink, brisk cap refill. Excellent dopplerable distal pulses. L lateral foot with black eschar unchanged and punctate lesions to 3,4,5 toes. ASSESSMENT and PLAN: s/p BL comm fem art endarterectomies, BL comm iliac stenting, and BL profunda femoral art endarterectomies Severe PAD with rest pain and ischemia Pt doing well post op. Appreciate cardiology eval for tachycardia. Appears to be resolved at this time. OK for discharge home today.
[2017-05-07] MEDS: METOPROLOL SUCC 25MG EXT REL TAB PO SCH (09:31)
[2017-05-07 09:39] VITALS: BP 103/58; PULSE 96; TEMP 37; O2SAT 96
--- NOTE | 2017-05-07 13:41 | DISCHARGE SUMMARY ---
ADMISSION DIAGNOSES: Severe peripheral arterial disease with rest pain and gangrene of the left foot. DISCHARGE DIAGNOSES: 1. Status post bilateral common femoral artery endarterectomy with patch, bilateral common iliac artery stents, bilateral profunda artery endarterectomy with patch. 2. Severe peripheral arterial disease and aortoiliac disease with rest pain and gangrene. DISCHARGE CONDITION: Stable. CONSULTATIONS IN THE HOSPITAL: Included cardiology due to tachycardia. PROCEDURES IN THE HOSPITAL: Include bilateral common femoral artery endarterectomy with patch, bilateral common iliac artery stents and bilateral profunda artery endarterectomies with patch, performed on 05/04/2017 with an EBL of 250 mL and no significant complications. HISTORY OF PRESENT ILLNESS: Ms. Padilla is a 61-year-old female with a longstanding history of peripheral arterial disease as the patient was longstanding history of coronary artery disease who was found to have peripheral arterial disease and iliac disease, during evaluation for severe claudication, rest pain of her left leg. She underwent a CTA evaluation which demonstrated bilateral common femoral artery near occlusion as well as severe iliac disease and even a distal aortic lesion which were all decreasing in flow to her legs. She was also noted to have an area of gangrene due to the wound she suffered when she hit her foot on something in her home that had not healed. She had significant pain in toes #3, #4 and #5 on the left foot as well as purplish discoloration and was having rest pain at night. Due to these symptoms, she was recommended to undergo intervention with femoral artery endarterectomies and possible iliac stenting and she was agreeable. HOSPITAL COURSE: The patient was admitted after undergoing her endarterectomy procedure. She did essentially well postoperatively. She did have some episodic tachycardia is unsure whether this is related to some mild dehydration versus stress. Due to one episode where her heart rate was 170, we did feel it was prudent to have her evaluated by cardiology. She did undergo an echocardiogram prior to being discharged, which was essentially unchanged from her baseline. She was felt to be stable enough for her discharge on postop day #3. PHYSICAL EXAMINATION: VITAL SIGNS: On day of discharge, vital signs were as follows: A temperature of 37.0, pulse of 96, and respiratory rate 18, blood pressure 103/58 with a pulse oximetry 96% on room air. CONSTITUTIONAL: The patient is a chronically ill-appearing, middle-aged female in no acute distress. She ambulates without assistance and is active, alert and oriented x4 with normal recent and remote memory. HEAD: Normocephalic and atraumatic. Eyes are EOMI with a poor dentition. ENT: Demonstrates no hearing loss, rhinorrhea or pharyngeal erythema. NECK: Supple, nontender with a midline trachea without masses or crepitus. LUNGS: Demonstrates no dyspnea. They are decreased throughout as far as sleeping. CARDIOVASCULAR: Heart demonstrates a regular rate and rhythm. Her peripheral pulses are full and equal in all extremities unless otherwise noted, specifically they are normal in her carotid, brachial and radial pulses. Her femoral pulses are not palpable due to her incisions; however, she has excellent dopplerable distal pulses which were not present prior to her procedure. She has no sign of distal ischemia at this time. ABDOMEN: Soft, nontender with normoactive bowel sounds in all 4 quadrants. No guarding or rebound. There was no flank or CVA tenderness. EXTREMITIES: Her bilateral femoral endarterectomy surgical sites are well approximated with machelle and healing appropriately. They are tender to palpation. They are soft. There is no hematoma. There is no ecchymosis, erythema or drainage noted. Her left foot does have a wound on the lateral aspect of her fifth metatarsal. This is not quite down to the bone and does have an eschar over top, approximately the size of a quarter. She does have some punctate lesions to toes 3, 4 and 5 at the tips; however, toe has had excellent refill, her foot is warm and pink now as well. NEUROLOGIC: The patient has grossly intact cranial nerves and grossly intact sensation. DIET UPON DISCHARGE: Should be a low-cholesterol AHA diet. MEDICATIONS: Reconciled on the chart and are as per her discharge instructions with the noted addition of Plavix for 3 months as well as the nicotine patch in order to assist smoking cessation. FOLLOWUP: Should with Dr. Mejia or his PA Marlene Goodman within 2 weeks for reevaluation and removal of her machelle. She was advised to call the office if any other questions. Thank you for allowing us to participate in the care of this patient.
--- NOTE | 2017-06-07 15:52 | OPERATIVE REPORT ---
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 POSTOPERATIVE DIAGNOSES: Bilateral iliac artery stenosis and aortic stenosis, bilateral profunda femoral artery stenosis. PROCEDURES: Bilateral common femoral artery endarterectomy with patch angioplasty, bilateral common iliac artery stents, bilateral profunda femoral artery endarterectomy with patch. SURGEON: Dr. Mejia. RESIDENTIAL [employer] SEALING TECHNICIAN: Precious Melchor MD and Marlene Goodman PA-C. ANESTHETIC: General. PROCEDURE INDICATIONS: The patient is a 61-year-old female with severe claudication and rest pain of the lower extremities. She was found to have aortoiliac artery stenoses. She was also found to have bilateral femoral artery stenosis. Endarterectomies and iliac stents were recommended. She understood the risks, options, and benefits and agreed to go ahead with these procedures. DESCRIPTION OF PROCEDURE: The patient was taken to the operating room and placed in the supine position. After both groins were prepped and draped in a sterile manner, bilateral femoral artery incisions were made. The common femoral arteries were isolated from the inguinal ligament down to pass the bifurcation on both sides. There was a large amount of plaque present. A puncture was then made of the left common femoral artery. This was done under direct vision and then 8 [place] sheath inserted. A pigtail was passed up to the distal aorta over 0.035 wire, and arteriography was performed. This showed occlusion of the right distal external iliac artery with reconstitution of the distal common femoral and then reocclusion and visualization of the profunda femoral just beyond its origin. Profunda femoral artery was seen on the left side. No superficial femoral arteries were seen on either side. We next passed 0.035 wire back in the aorta. The right side was then punctured, and wire was able to be manipulated up through the occlusion. An 8-Polish sheath was inserted in the right side also. We then passed wires into the aorta from both sides. Once this was done, we then brought the 2 stents to the operative field. One was an 8 x 59 for the left side, and we also used an 8 x 59 for the right. These were passed up into the aorta. They were pulled back down and located right at the bifurcation in a kissing stent fashion. Both stents were balloon expandable. I then ballooned the stents open to nominal pressures. Arteriography done at that time showed the common iliac artery was noted to be widely patent. There was no internal iliac artery seen on either side. There was good flow through the external iliac arteries on the right side and left side. Mild plaque was seen on both sides. We then clamped the common femoral arteries on the left side. Profunda was then clamped distally. A longitudinal arteriotomy was then made. Endarterectomy was performed to the left common femoral artery. This was done in the usual fashion. We then closed it with a patch. This was sewn in place with a Prolene suture. Prior to completing this closure, backbleeding and forward bleeding were allowed to occur. Final few sutures were then placed and securely tied. The patch used was an Acuseal patch. Clamps were then removed. Good flow was seen. Adequate hemostasis was noted. We did the same thing on the right side again clamping the common femoral artery beneath the inguinal ligament and distally on the superficial femoral and profunda. Longitudinal arteriotomy was then performed. A large amount of plaque was seen. This was endarterectomized as on the left side without difficulty. The arteriotomy was then closed with an Acuseal patch with a CV6 [place] suture. This was done in the usual vascular fashion. Prior to completing the closure, backbleeding and forward bleeding were allowed to occur, and the final few sutures were placed and securely tied. Clamps were removed, and again, there was good flow through the profunda on the right side. Adequate hemostasis was then obtained. I then listened with the Doppler again, and I did not like the flow within the profunda on either side. I then re-punctured the left groin femoral artery and passed a wire up into the aorta through the stents. Pigtail was then reinserted. Another injection was done. This showed short occlusions of both profunda femoral arteries just beyond their origins. Superficial femoral artery was occluded on the left side but patent and was very small on the right side. We decided to do an endarterectomy being that these are so isolated on the profundus. The profunda was then clamped at its origin on the right and distally. A small rachel was made in the profunda femoral artery right over the area of occlusion. There was an isolated plaque seen in that level. The plaque was endarterectomized. It peeled out very easily with no flaps. This was then closed with a small patch of Acuseal. Same was done on the left side. Again, a small rachel was made in the profunda femoral artery, and a small heaped up mound of plaque was seen which peeled out easily. Again, this site was also closed with a piece of Acuseal patch with a CV6 [place] suture. Clamps removed. Good flow was then seen in both sides with excellent Doppler signals in the distal profunda femoral artery. At that point, adequate hemostasis was obtained. After adequate hemostasis was noted, the wounds were closed in the usual fashion using a running 3-0 Vicryl suture for the subcutaneous layer. A 2-0 Vicryl suture in running fashion was used for this femoral sheath, and then machelle were used for the skin. Patient had good Doppler signals in both feet at the end of the procedure. The patient left the operating room in satisfactory condition tolerating the procedure well. I attest to the content of the Intraoperative Record and any orders documented therein. Any exception s are noted below.
== END 2017-05-07 10:00 | disposition home or self-care (01) | DRG 253 ==
LOC: C.ACU 06:05 → C.2T 12:28 → ENRESERV 14:09
PROVIDERS: ADMIT Surgery Vascular Surgery; ATTEND Surgery Vascular Surgery
PROC: 047C3D6 (ICD-10-PCS; principal; 2017-05-04 08:00)
PROC: 04UL0JZ Supplement Left Femoral Artery with Synthetic Substitute, Open Approach (ICD-10-PCS; principal; 2017-05-04 08:00)
PROC: 04CK0ZZ Extirpation of Matter from Right Femoral Artery, Open Approach (ICD-10-PCS; principal; 2017-05-04 08:00)
PROC: 04UK0JZ Supplement Right Femoral Artery with Synthetic Substitute, Open Approach (ICD-10-PCS; principal; 2017-05-04 08:00)
PROC: 04CL0ZZ Extirpation of Matter from Left Femoral Artery, Open Approach (ICD-10-PCS; principal; 2017-05-04 08:00)
PROC: 047D3D6 (ICD-10-PCS; principal; 2017-05-04 08:00)
DX: I70.223 Atherosclerosis of native arteries of extremities with rest pain, bilateral legs (principal); L97.928 Non-pressure chronic ulcer of unspecified part of left lower leg with other specified severity; I47.1 Supraventricular tachycardia; I70.245 Atherosclerosis of native arteries of left leg with ulceration of other part of foot; I70.0 Atherosclerosis of aorta; I70.8 Atherosclerosis of other arteries; Z88.8 Allergy status to other drugs, medicaments and biological substances; F17.200 Nicotine dependence, unspecified, uncomplicated; I25.10 Atherosclerotic heart disease of native coronary artery without angina pectoris; E78.5 Hyperlipidemia, unspecified; I10 Essential (primary) hypertension